=== PATIENT | female | born 1970 | race Caucasian/White ===

== ENCOUNTER 2018-03-19 08:05 | Emergency (ER) | payer BC ==
[~2018-03-19] VITALS: Ht 165.1 cm; Wt 109.7 kg
[2018-03-19] MEDS ORDERED: MOTRIN400 MG PO (10:39)
[2018-03-19 10:51] VITALS: BP 145/78
== END 2018-03-19 10:52 | disposition home or self-care (01) ==
LOC: EME 08:05
DX: M71.22 Synovial cyst of popliteal space [Baker], left knee (principal); Z90.49 Acquired absence of other specified parts of digestive tract; Z88.0 Allergy status to penicillin
CPT/HCPCS: 73564; 76882; 99281; 99284